=== PATIENT | female | born 1970 | race Caucasian/White ===

== ENCOUNTER 2017-04-08 16:45 | Inpatient (IN) | payer OTHER ==
[~2017-04-08] VITALS: Ht 177.8 cm; Wt 139.7 kg
[~2017-04-08 16:45] MED LIST: AMLO5TAB4 PO; AMOX-1041 PO; ASPI81TA28 PO; Acetaminophen/Hydrocodone Bi PO; HYDR-4446 PO; INSU100S22 SUBQ; METO-50 PO; ROC.25 PO; SIMV40TA5 PO; SLOFE PO; [UNRECOGNIZED DRUG - CODE] PO
[2017-04-08 17:51] VITALS: BP 210/118
[2017-04-08] MEDS ORDERED: FERR325E14 PO (18:02)
[2017-04-08 18:19] LABS: HEMOGLOBIN 7.1 g/dL (12.0-16.0); LYMPHOCYTES % (AUTO) 9.8 % (20.5-51.1); MONOCYTES # (AUTO) 0.6 K/uL (0.8-1.0)
[2017-04-08 18:20] LABS: BILIRUBIN,URINE NEGATIVE (NEGATIVE); BLOOD, URINE 1+ (NEGATIVE); COLOR,URINE YELLOW (YELLOW); LEUKOCYTE ESTERASE ,URINE NEGATIVE (NEGATIVE); NITRITE, URINE NEGATIVE (NEGATIVE); PROTEIN,URINE 3+ (NEGATIVE); UGLUCOSE 3+ (NEGATIVE); UROBILINOGEN,URINE 0.2 EU/dL (0.2 - 1)
[2017-04-08 18:21] LABS: BASOPHILS % (AUTO) 0.2 % (0.0-2.0); EOSINOPHILS # (AUTO) 0.4 K/uL (0-0.4); EOSINOPHILS % (AUTO) 3.7 % (0.0-4.0); HEMATOCRIT 21.9 % (36-48); LYMPHOCYTES # (AUTO) 1.1 K/uL (2.5-16.5); MEAN CORPUSCULAR HEMOGLOBIN 28 pg (27-31); MEAN CORPUSCULAR HGB CONC 33 g/dL (33-37); MEAN CORPUSCULAR VOLUME 85 fL (80-94); MONOCYTES % (AUTO) 5.4 % (1.7-9.3); NEUTROPHILS # (AUTO) 9.4 K/uL (1.8-7.7); NEUTROPHILS % (AUTO) 80.9 % (42.2-75.2); PLATELET COUNT (AUTO) 304 K/uL (140-450); RED BLOOD CELL COUNT(AUTO) 2.58 MIL/uL (4.20-5.40); RED CELL DISTRIBUTION WIDTH 13.4 % (11.6-13.7); WHITE BLOOD COUNT (AUTO) 11.5 K/uL (4.8-10.8)
[2017-04-08 18:30] LABS: APPEARANCE,URINE HAZY (CLEAR)
[2017-04-08 18:33] LABS: BACTERIA,URINE 1-9 (FEW) /HPF (None Seen); RBC,URINE 3-10 (FEW) /HPF (0-5); SQUAMOUS EPITHELIAL CELL,UR 4-10 (MOD) /LPF (0-3 (FEW))
[2017-04-08 18:37] LABS: ALBUMIN 1.9 g/dL (3.4-5.0); ANION GAP 20.7 (8-16); CARBON DIOXIDE 17.8 mmol/L (21-32); POTASSIUM 4.5 mmol/L (3.5-5.1); TOTAL BILIRUBIN 0.3 mg/dL (0.0-1.0); TOTAL PROTEIN, SERUM 6.2 g/dL (6.4-8.2)
[2017-04-08 18:42] LABS: CREATININE 12.6 mg/dL (0.6-1.3)
[2017-04-08 18:51] LABS: PROTHROMBIN TIME 9.7 secs (10.8-13.4)
[2017-04-08] MEDS ORDERED: hydrALAZINE 20 MG/ML VIAL IVP ONE ×2 (21:20→21:45)
[2017-04-08] MEDS ORDERED: INSULIN HUMAN REGULAR 100 UNITS/ML 10 ML VIAL IVP ONE ×2 (21:20→21:45)
[2017-04-08 21:35] LABS: BLOOD GAS PCO2 26.8 mmHg (20-50); BLOOD GAS PH 7.326 (7.35-7.45)
[2017-04-08 21:36] LABS: BLOOD GAS PO2 105.5 mmHg
[2017-04-08 21:38] LABS: BLOOD GAS BASE EXCESS -11.2 mmol/L (-2.0-2.0); BLOOD GAS HCO3 13.7 mmol/L; BLOOD GAS O2 SAT% 97.4 % (92.0-98.5)
[2017-04-08] MEDS ORDERED: NACL 0.9% 1,000 ML IV ONE (21:45)
[2017-04-08] MEDS ORDERED: DEXTROSE 50% 50 ML SYR IVP PRN (21:55)
[2017-04-08 22:30] VITALS: BP 181/191
[2017-04-08] MEDS: hydrALAZINE 20 MG/ML VIAL IVP PRN (23:09)
[2017-04-09] VITALS (12 sets, daily range): BP systolic 136–198; BP diastolic 38–107
[2017-04-09] MEDS: ACETAMINOPHEN 325 MG TAB PO PRN ×3 (01:28→20:44)
[2017-04-09] MEDS: hydrALAZINE 20 MG/ML VIAL IVP PRN ×3 (04:11→13:01)
[2017-04-09] MEDS: BLOOD GLUCOSE MONITORING 1 DEV DEV FS SCH ×4 (06:40→20:35)
[2017-04-09] MEDS: INSULIN LISPRO SLIDING SCALE 100 UNITS/ML VIAL SUBQ PRN ×4 (06:47→20:54)
[2017-04-09] MEDS: HYDROcodone/APAP 5/325 MG 1 TAB TAB PO PRN ×2 (07:41→13:01)
[2017-04-09] MEDS: amLODIPine 5 MG TAB PO SCH (08:15)
[2017-04-09] MEDS: ECOTRIN 81 MG TABEC PO SCH (08:17)
[2017-04-09] MEDS: hydrALAZINE 25 MG TAB PO SCH ×3 (08:17→17:00)
[2017-04-09] MEDS: METOPROLOL 50 MG TAB PO SCH (08:17)
[2017-04-09] MEDS: FERROUS SULFATE 325 MG TABEC PO SCH ×2 (08:17→20:44)
[2017-04-09] MEDS: ONDANSETRON 4 MG/2 ML VIAL IVP PRN ×4 (08:31→20:45)
[2017-04-09] MEDS ORDERED: ENOXAPARIN 30 MG/0.3 ML SYR SUBQ SCH (09:00)
[2017-04-09] MEDS: CALCITRIOL 0.25 MCG CAPLF PO SCH (09:00)
[2017-04-09] MEDS ORDERED: PROBIOTIC SCREEN 1 EA MISC MC PRN (09:05)
[2017-04-09 11:30] LABS: ANION GAP 18.8 (8-16); CARBON DIOXIDE 17.5 mmol/L (21-32); POTASSIUM 4.3 mmol/L (3.5-5.1)
[2017-04-09 11:48] LABS: CREATININE 12.1 mg/dL (0.6-1.3)
[2017-04-09] MEDS: LABETALOL 100 MG/20 ML VIAL IVP PRN (17:01)
[2017-04-09] MEDS ORDERED: ENALAPRILAT 2.5 MG/2 ML VIAL IVP PRN (17:45)
[2017-04-09] MEDS ORDERED: [UNRECOGNIZED DRUG - OTHER] IV PRN (18:05)
[2017-04-09] MEDS ORDERED: SODIUM CHLORIDE 0.9% IV PRN (18:05)
[2017-04-09] MEDS ORDERED: cloNIDine-TTS3 0.3 MG/24 HR 1 EA PATCH TD SCH (18:27)
[2017-04-09] MEDS: SIMVASTATIN 40 MG TAB PO SCH (20:45)
[2017-04-09] MEDS: INSULIN DETEMIR 100 UNITS/ML 10 ML VIAL SUBQ SCH (20:57)
[2017-04-10] VITALS (8 sets, daily range): BP systolic 126–162; BP diastolic 74–93
[2017-04-10] MEDS: METOCLOPRAMIDE 10 MG/2 ML INJ VIAL IVP PRN (00:48)
[2017-04-10] MEDS: ACETAMINOPHEN 325 MG TAB PO PRN (05:12)
[2017-04-10] MEDS: BLOOD GLUCOSE MONITORING 1 DEV DEV FS SCH ×4 (06:43→21:00)
[2017-04-10 08:01] LABS: ANION GAP 21.3 (8-16); CALCIUM 8.1 mg/dL (8.5-10.1); CARBON DIOXIDE 15.8 mmol/L (21-32); POTASSIUM 4.1 mmol/L (3.5-5.1)
[2017-04-10 08:07] LABS: PHOSPHORUS 10.9 mg/dL (2.5-4.9)
[2017-04-10 08:08] LABS: CREATININE 12.5 mg/dL (0.6-1.3)
[2017-04-10 08:17] LABS: HEMATOCRIT 20.9 % (36-48); HEMOGLOBIN 6.9 g/dL (12.0-16.0); MEAN CORPUSCULAR HEMOGLOBIN 29 pg (27-31); MEAN CORPUSCULAR HGB CONC 33 g/dL (33-37); MEAN CORPUSCULAR VOLUME 87 fL (80-94); RED BLOOD CELL COUNT(AUTO) 2.42 MIL/uL (4.20-5.40); WHITE BLOOD COUNT (AUTO) 11.7 K/uL (4.8-10.8)
[2017-04-10 08:18] LABS: BASOPHILS % (AUTO) 0.4 % (0.0-2.0); EOSINOPHILS # (AUTO) 0.5 K/uL (0-0.4); EOSINOPHILS % (AUTO) 4.1 % (0.0-4.0); LYMPHOCYTES # (AUTO) 1.3 K/uL (2.5-16.5); LYMPHOCYTES % (AUTO) 11.5 % (20.5-51.1); MONOCYTES # (AUTO) 0.9 K/uL (0.8-1.0); MONOCYTES % (AUTO) 7.7 % (1.7-9.3); NEUTROPHILS % (AUTO) 76.3 % (42.2-75.2); PLATELET COUNT (AUTO) 255 K/uL (140-450); RED CELL DISTRIBUTION WIDTH 13.9 % (11.6-13.7)
[2017-04-10] MEDS: FERROUS SULFATE 325 MG TABEC PO SCH ×2 (08:26→20:54)
[2017-04-10] MEDS: ECOTRIN 81 MG TABEC PO SCH (08:33)
[2017-04-10] MEDS: CALCITRIOL 0.25 MCG CAPLF PO SCH (08:33)
[2017-04-10] MEDS: hydrALAZINE 25 MG TAB PO SCH ×3 (08:33→17:18)
[2017-04-10] MEDS: METOPROLOL 50 MG TAB PO SCH (08:33)
[2017-04-10] MEDS: amLODIPine 5 MG TAB PO SCH (08:33)
[2017-04-10] MEDS ORDERED: LIDOCAINE 1% 50 ML ONE (10:07)
[2017-04-10] MEDS ORDERED: ceFAZolin 1,000 MG VIAL ONE (10:07)
[2017-04-10] MEDS ORDERED: BUPIVACAINE-MPF 0.25% 30 ML VIAL INJ ONE (10:08)
[2017-04-10] MEDS ORDERED: fentaNYL 0.05 MG/ML VIAL ONE (11:04)
[2017-04-10] MEDS ORDERED: MIDAZOLAM 2 MG/2 ML VIAL ONE ×2 (11:04→11:19)
[2017-04-10] MEDS ORDERED: EPOETIN ALFA 4,000 UNITS/ML VIAL IV SCH (11:44)
[2017-04-10] MEDS: SEVELAMER CARBONATE 800 MG TAB PO SCH ×2 (12:49→17:18)
[2017-04-10] MEDS: HYDROcodone/APAP 5/325 MG 1 TAB TAB PO PRN (17:18)
[2017-04-10] MEDS ORDERED: cloNIDine-TTS3 0.3 MG/24 HR 1 EA PATCH TD SCH (18:00)
[2017-04-10] MEDS: ONDANSETRON 4 MG/2 ML VIAL IVP PRN (18:43)
[2017-04-10] MEDS: LABETALOL 100 MG/20 ML VIAL IVP PRN (18:44)
[2017-04-10] MEDS: SIMVASTATIN 40 MG TAB PO SCH (20:54)
[2017-04-10] MEDS: INSULIN LISPRO SLIDING SCALE 100 UNITS/ML VIAL SUBQ PRN (21:00)
[2017-04-10] MEDS: INSULIN DETEMIR 100 UNITS/ML 10 ML VIAL SUBQ SCH (21:00)
[2017-04-10] MEDS: MORPHINE SULFATE 2 MG/ML SYR IVP PRN (21:00)
[2017-04-11] VITALS: BP 160/79
[2017-04-11] MEDS: MORPHINE SULFATE 2 MG/ML SYR IVP PRN ×2 (00:50→09:21)
[2017-04-11] MEDS: ONDANSETRON 4 MG/2 ML VIAL IVP PRN ×3 (00:50→16:10)
[2017-04-11 04:42] VITALS: BP 128/65
[2017-04-11 06:26] LABS: ANION GAP 12.9 (8-16); CALCIUM 7.9 mg/dL (8.5-10.1); CARBON DIOXIDE 24.1 mmol/L (21-32)
[2017-04-11 06:30] LABS: CREATININE 9.1 mg/dL (0.6-1.3)
[2017-04-11] MEDS: BLOOD GLUCOSE MONITORING 1 DEV DEV FS SCH ×4 (06:56→22:11)
[2017-04-11 08:00] VITALS: BP 173/73
[2017-04-11] MEDS: SEVELAMER CARBONATE 800 MG TAB PO SCH ×3 (08:00→17:18)
[2017-04-11] MEDS ORDERED: BISACODYL 5 MG TABEC PO SCH (08:13)
[2017-04-11] MEDS ORDERED: MAGNESIUM HYDROXIDE 2400 MG/30 ML UDC PO SCH (08:14)
[2017-04-11] MEDS: METOCLOPRAMIDE 10 MG/2 ML INJ VIAL IVP PRN (09:22)
[2017-04-11] MEDS: INSULIN LISPRO SLIDING SCALE 100 UNITS/ML VIAL SUBQ PRN ×4 (09:27→22:15)
[2017-04-11] MEDS: CALCITRIOL 0.25 MCG CAPLF PO SCH (10:47)
[2017-04-11] MEDS: amLODIPine 5 MG TAB PO SCH (10:48)
[2017-04-11] MEDS: ECOTRIN 81 MG TABEC PO SCH (10:48)
[2017-04-11] MEDS: FERROUS SULFATE 325 MG TABEC PO SCH ×2 (10:48→22:11)
[2017-04-11] MEDS: METOPROLOL 50 MG TAB PO SCH (10:49)
[2017-04-11] MEDS: hydrALAZINE 25 MG TAB PO SCH ×3 (10:49→17:19)
[2017-04-11 12:00] VITALS: BP 151/71
[2017-04-11] MEDS ORDERED: FUROSEMIDE 40 MG TAB PO SCH ×2 (13:10→18:00)
[2017-04-11 15:11] LABS: FERRITIN 266 ng/mL (15-150); HEPATITIS B CORE AB TOTAL Negative (Negative); HEPATITIS B SURFACE AB Non Reactive (.); HEPATITIS B SURFACE ANTIGEN Negative (Negative)
[2017-04-11 16:00] VITALS: BP 143/73
[2017-04-11] MEDS: ACETAMINOPHEN 325 MG TAB PO PRN ×2 (17:18→22:19)
[2017-04-11 20:00] VITALS: BP 152/85
[2017-04-11] MEDS: SIMVASTATIN 40 MG TAB PO SCH (22:11)
[2017-04-11] MEDS: INSULIN DETEMIR 100 UNITS/ML 10 ML VIAL SUBQ SCH (22:13)
[2017-04-12] VITALS: BP 131/59
[2017-04-12 04:00] VITALS: BP 140/68
[2017-04-12] MEDS: ACETAMINOPHEN 325 MG TAB PO PRN ×2 (04:24→08:34)
[2017-04-12] MEDS: BLOOD GLUCOSE MONITORING 1 DEV DEV FS SCH ×3 (06:31→16:37)
[2017-04-12 07:39] LABS: BASOPHILS % (AUTO) 0.3 % (0.0-2.0); EOSINOPHILS # (AUTO) 0.5 K/uL (0-0.4); EOSINOPHILS % (AUTO) 4.5 % (0.0-4.0); HEMATOCRIT 21.3 % (36-48); HEMOGLOBIN 7.1 g/dL (12.0-16.0); LYMPHOCYTES # (AUTO) 1.7 K/uL (2.5-16.5); LYMPHOCYTES % (AUTO) 13.9 % (20.5-51.1); MEAN CORPUSCULAR HEMOGLOBIN 29 pg (27-31); MEAN CORPUSCULAR HGB CONC 33 g/dL (33-37); MEAN CORPUSCULAR VOLUME 87 fL (80-94); MONOCYTES % (AUTO) 8.7 % (1.7-9.3); NEUTROPHILS # (AUTO) 8.8 K/uL (1.8-7.7); NEUTROPHILS % (AUTO) 72.6 % (42.2-75.2); PLATELET COUNT (AUTO) 277 K/uL (140-450); RED BLOOD CELL COUNT(AUTO) 2.43 MIL/uL (4.20-5.40); RED CELL DISTRIBUTION WIDTH 13.6 % (11.6-13.7)
[2017-04-12 07:58] LABS: ANION GAP 9.7 (8-16); CALCIUM 7.9 mg/dL (8.5-10.1); CARBON DIOXIDE 28.2 mmol/L (21-32); POTASSIUM 3.9 mmol/L (3.5-5.1)
[2017-04-12 08:00] VITALS: BP 139/75
[2017-04-12 08:05] LABS: CREATININE 6.9 mg/dL (0.6-1.3)
[2017-04-12] MEDS: SEVELAMER CARBONATE 800 MG TAB PO SCH ×3 (08:15→17:27)
[2017-04-12] MEDS: FUROSEMIDE 40 MG TAB PO SCH ×2 (08:18→17:27)
[2017-04-12] MEDS: hydrALAZINE 25 MG TAB PO SCH ×3 (08:23→17:27)
[2017-04-12] MEDS: ECOTRIN 81 MG TABEC PO SCH (08:24)
[2017-04-12] MEDS: METOPROLOL 50 MG TAB PO SCH (08:24)
[2017-04-12] MEDS: FERROUS SULFATE 325 MG TABEC PO SCH (08:24)
[2017-04-12] MEDS: CALCITRIOL 0.25 MCG CAPLF PO SCH (08:33)
[2017-04-12] MEDS ORDERED: NIFEdipine 90 MG TABER PO SCH (09:00)
[2017-04-12] MEDS ORDERED: EPOETIN ALFA 4,000 UNITS/ML VIAL IV SCH (09:00)
[2017-04-12] MEDS ORDERED: NIFE90TE4 PO (11:34)
[2017-04-12 12:00] VITALS: BP 104/57
[2017-04-12 16:00] VITALS: BP 116/57
[2017-04-12] MEDS ORDERED: SODIUM PHOSPHATE 118 ML ENEM RC SCH (16:04)
[2017-04-12] MEDS: INSULIN LISPRO SLIDING SCALE 100 UNITS/ML VIAL SUBQ PRN (16:46)
[2017-04-16] MEDS ORDERED: cloNIDine-TTS3 0.3 MG/24 HR 1 EA PATCH TD SCH (09:00)
== END 2017-04-12 20:00 | disposition home or self-care (01) | DRG 469 ==
LOC: MED 16:45 → MIC 22:04 → MTU 04-10 23:08
PROVIDERS: ADMIT Hospitalist; ATTEND Internal Medicine Pulmonary Disease
PROC: B5181ZA Fluoroscopy of Superior Vena Cava using Low Osmolar Contrast, Guidance (ICD-10-PCS; 2017-04-10)
PROC: 5A1D60Z (ICD-10-PCS; 2017-04-10)
PROC: 30233N1 Transfusion of Nonautologous Red Blood Cells into Peripheral Vein, Percutaneous Approach (ICD-10-PCS; 2017-04-10)
PROC: 02HV33Z Insertion of Infusion Device into Superior Vena Cava, Percutaneous Approach (ICD-10-PCS; principal; 2017-04-10 10:50)
DX: N17.9 Acute kidney failure, unspecified (principal); I13.2 Hypertensive heart and chronic kidney disease with heart failure and with stage 5 chronic kidney disease, or end stage renal disease; E11.21 Type 2 diabetes mellitus with diabetic nephropathy; E11.65 Type 2 diabetes mellitus with hyperglycemia; D63.1 Anemia in chronic kidney disease; E78.00 Pure hypercholesterolemia, unspecified; I50.9 Heart failure, unspecified; E11.22 Type 2 diabetes mellitus with diabetic chronic kidney disease; N18.6 End stage renal disease; E44.1 Mild protein-calorie malnutrition; D63.8 Anemia in other chronic diseases classified elsewhere; Z83.3 Family history of diabetes mellitus; Z82.5 Family history of asthma and other chronic lower respiratory diseases; Z68.41 Body mass index [BMI] 40.0-44.9, adult; Z91.19 Patient's noncompliance with other medical treatment and regimen; Z90.49 Acquired absence of other specified parts of digestive tract; Z98.51 Tubal ligation status
CPT/HCPCS: 36415; 36600; 71010; 71020; 76770; 80048; 80053; 81001; 81025; 82728; 82803; 82948; 83540; 83880; 84100; 85025; 85610; 86704; 86706; 86886; 86900; 86901; 86920; 87081; 87086; 87340; 93005; 96374; 96375; 99285; C1750; J0360; J0690; J0885; J1644; J1815; J2001; J2250; J2270; J2405; J2765; J3010; J3490; J7030; P9016; Q0092